=== PATIENT | male | born 1980 | race Caucasian/White ===

== ENCOUNTER 2020-04-08 12:43 | Emergency (ER) | payer OTHER ==
[2020-04-08 14:12] LABS: BLOOD UREA NITROGEN,BUN 12 mg/dL (7.0-18.0); CARBON DIOXIDE,CO2 27.6 mmol/L (21.0-32.0); CHLORIDE,CL 104 mmol/L (98-107); GLUCOSE RANDOM 114 mg/dL (74-106); POTASSIUM,K 4.7 mmol/L (3.5-5.1); SODIUM,NA 142 mmol/L (136-148)
--- NOTE | 2020-04-08 15:14 | CT ---
Indication Pain and swelling. Concern for right mastoiditis. TECHNIQUE: Noncontrast CT images were acquired through the temporal bones. COMPARISON: None. FINDINGS: Right side: Inflammatory stranding soft tissue swelling in the right postauricular region. The external auditory canal is widely patent. The tympanic membrane is faintly visualized. The middle ear cavity is clear. The ossicles and scutum are intact. No evidence for otosclerosis. The inner ear structures, including the cochlea, vestibule, and semicircular canals demonstrate normal morphology. Thinning of the superior semicircular canal roof without overt dehiscence. The mastoid air cells are clear. Left Side: The external auditory canal is widely patent. The tympanic membrane is faintly visualized. The middle ear cavity is clear. The ossicles and scutum are intact. No evidence for otosclerosis. The inner ear structures, including the cochlea, vestibule, and semicircular canals demonstrate normal morphology. No semicircular canal dehiscence. The mastoid air cells are clear. Other: Mild mucosal thickening in the left maxillary sinus. Lobulated 11 mm lesion in the left nasopharynx is nonspecific, though may represent a retention cyst. IMPRESSION: 1. The mastoid air cells and middle ear cavities are clear. 2. Inflammatory stranding and soft tissue swelling in the right postauricular region, concerning for cellulitis. Evaluation for abscess is limited on this noncontrast exam. 3. Thinning of the right superior semicircular canal roof without overt dehiscence. Please note that all CT scans at this facility use dose modulation, iterative reconstruction, and/or weight-based dosing when appropriate to reduce radiation dose to as low as reasonably achievable. Dictated by Chon Lord MD @ Apr 08 2020 3:03PM Signed by Dr. Chon Lord @ Apr 08 2020 3:13PM
--- NOTE | 2020-04-08 15:23 | EDM.PDOC ---
ED HPI GENERAL MEDICAL PROBLEM - General Chief Complaint: ENT Problem Stated Complaint: POSSIBLE EAR INFECTION Time Seen by Provider: 04/08/20 12:45 Source of Information: Reports: Patient History Limitations: Reports: No Limitations - History of Present Illness INITIAL COMMENTS - FREE TEXT/NARRATIVE: HISTORY AND PHYSICAL: History of present illness: Patient is a 39-year-old male who presents to the emergency room with concerns of soft tissue swelling and tenderness behind his right ear. He is concerned that he has an ear infection. He denies any injury, trauma or falls. Denies any recent travel, skin rashes or vector bites. No hearing loss, tinnitus, or drainage from the ear. Patient denies any fever, chills, headache, change in vision, syncope or near syncope. Denies any chest pain, back pain, shortness of breath or cough. Denies any GI or symptoms. Review of systems: As per history of present illness and below otherwise all systems reviewed and negative. Past medical history: As per history of present illness and as reviewed below otherwise noncontributory. Surgical history: As per history of present illness and as reviewed below otherwise noncon tributory. Social history: See social history for further information Family history: As per history of present illness and as reviewed below otherwise noncontributory. Physical exam: General: Well developed and well nourished. Alert and orientated x 3. Nontoxic in appearance and in no acute distress. Vital signs are stable and have been reviewed by me. Nursing notes were reviewed. HEENT: Atraumatic, normocephalic, pupils equal and reactive bilaterally, negative for conjunctival pallor or scleral icterus, mucous membranes moist, TMs normal bilaterally, throat clear, neck supple, nontender, trachea midline. Mild soft tissue swelling and redness behind the right ear along the mastoid bone, describes light tenderness with firm palpation. Nonfluctuant and non indurated. No drooling or trismus noted. No meningeal signs. No hot potato voice noted. Lungs: Clear to auscultation, breath sounds equal bilaterally. Normal work of breathing, no accessory muscles used. Heart: S1S2, regular rate and rhythm without overt murmur Abdomen: Soft, nondistended, nontender. Negative for masses or hepatosplenomegaly. Negative for costovertebral tenderness. Skin: Localized mild soft tissue swelling and redness behind the right ear along the mastoid bone (approx size of a quarter), describes light tenderness with firm palpation. Nonfluctuant and non indurated. Otherwise skin is intact, warm, dry. No lesions or rashes noted. Hematologic: No petechiae or purpra. Mucosa appropriate color and normal nail bed color and refill. Extremities: Atraumatic, moves all extremities per self without difficulty or deficits, negative for cords or calf pain. Neurovascular unremarkable. Neuro: Awake, alert, oriented. Cranial nerves II through XII unremarkable. Cerebellum unremarkable. Motor and sensory unremarkable throughout. Exam nonfocal. Psychiatric: Mood and affect are appropriate. Normal thought process. Answering questions appropriately. Notes: Lab work is unremarkable. CT shows that the mastoid air cells and middle ear cavities are clear. Inflammatory stranding and soft tissue swelling in the right postauricular region, concerning for cellulitis. Thinning of the right superior semicircular canal roof without overt dehiscence. I have talked with the patient about today's findings, in addition to providing specific details for plan of care. Reassessment at the time of disposition demonstrates that the patient is in no acute distress. Will treat with Keflex. The patient is stable for discharge, counseling was provided and we discussed in great detail signs and symptoms that would prompt them to return to the Emergency Department. Medication, follow up and supportive care measures were reviewed and discussed. Voices understanding and is agreeable to plan of care. Denies any further questions or concerns at this time. Diagnostics: CBC, CMP, Mastoid CT Therapeutics: None Prescription: Keflex Impression: Cellulitis Plan: 1. Today your lab work is within normal limits. CT scan does show a cellulitis of the soft tissue. Please continue to monitor the site closely. Take the antibiotic as directed.. 2. If needed you can alternate Tylenol and ibuprofen. 3. We encourage you to follow up with your primary care provider and/or recommended specialist in the next few days for re-evaluation and further care/management. If your symptoms should worsen, new symptoms develop or any of the signs and symptoms we discussed should arise please return to the emergency room or call 911 (if needed). Definitive disposition and diagnosis as appropriate pending reevaluation and review of above. - Related Data Allergies Allergy/AdvReac Type Severity Reaction Status Date / Time morphine Allergy Hives Verified 04/08/20 12:56 Home Meds: Home Meds cephALEXin [Keflex] 500 mg PO Q8H 5 Days #15 cap 04/08/20 [Rx] Past Medical History - Past Health History Medical/Surgical History: Denies Medical/Surgical History - Infectious Disease History Infectious Disease History: Reports: None Social & Family History - Family History Family Medical History: No Pertinent Family History - Tobacco Use Tobacco Use Status *Q: Never Tobacco User - Recreational Drug Use Recreational Drug Use: No ED ROS ENT - Review of Systems Review Of Systems: Comprehensive ROS is negative, except as noted in HPI. ED EXAM, ENT - Physical Exam Exam: See Below (See dictation) Course - Vital Signs Last Recorded V/S: Last Vital Signs Temp 97.3 F 04/08/20 12:57 Pulse 96 04/08/20 12:57 Resp 17 04/08/20 12:57 BP 126/78 04/08/20 12:57 Pulse Ox 99 04/08/20 12:57 - Orders/Labs/Meds Labs: Laboratory Tests 04/08/20 04/08/20 Range/Units 13:30 13:30 WBC 5.93 (4.0-11.0) K/uL RBC 4.93 (4.50-5.90) M/uL Hgb 15.6 (13.0-17.0) g/dL Hct 46.1 (38.0-50.0) % MCV 93.5 (80.0-98.0) fL MCH 31.6 (27.0-32.0) pg MCHC 33.8 (31.0-37.0) g/dL RDW Std Deviation 43.7 (28.0-62.0) fl RDW Coeff of Marie 13 (11.0-15.0) % Plt Count 178 (150-400) K/uL MPV 9.40 (7.40-12.00) fL Neut % (Auto) 51.8 (48.0-80.0) % Lymph % (Auto) 38.8 (16.0-40.0) % Greene % (Auto) 5.2 (0.0-15.0) % Eos % (Auto) 3.4 (0.0-7.0) % Baso % (Auto) 0.8 (0.0-1.5) % Neut # (Auto) 3.1 (1.4-5.7) K/uL Lymph # (Auto) 2.3 (0.6-2.4) K/uL Greene # (Auto) 0.3 (0.0-0.8) K/uL Eos # (Auto) 0.2 (0.0-0.7) K/uL Baso # (Auto) 0.1 (0.0-0.1) K/uL Nucleated RBC % 0.0 /100WBC Nucleated RBCs # 0 K/uL Sodium 142 (136-148) mmol/L Potassium 4.7 (3.5-5.1) mmol/L Chloride 104 (98-107) mmol/L Carbon Dioxide 27.6 (21.0-32.0) mmol/L BUN 12 (7.0-18.0) mg/dL Creatinine 1.1 (0.8-1.3) mg/dL Est Cr Clr Drug Dosing 90.16 mL/min Estimated GFR (MDRD) > 60.0 ml/min Glucose 114 H (74-106) mg/dL Calcium 9.3 (8.5-10.1) mg/dL Total Bilirubin 0.3 (0.2-1.0) mg/dL AST 11 L (15-37) IU/L ALT 25 (14-63) IU/L Alkaline Phosphatase 52 (46-116) U/L Total Protein 7.7 (6.4-8.2) g/dL Albumin 4.3 (3.4-5.0) g/dL Globulin 3.4 (2.6-4.0) g/dL Albumin/Globulin Ratio 1.3 (0.9-1.6) Departure - Departure Time of Disposition: 15:22 Disposition: Home, Self-Care 01 Clinical Impression: Cellulitis Qualifiers: Site of cellulitis: face Qualified Code(s): L03.211 - Cellulitis of face - Discharge Information Prescriptions: cephALEXin [Keflex] 500 mg PO Q8H 5 Days #15 cap Instructions: Cellulitis, Adult, [id number] Referrals: PCP,Not In Area [Primary Care Provider] - Forms: ED Department Discharge Additional Instructions: The following information is given to patients seen in the emergency department who are being discharged to home. This information is to outline your options for follow-up care. We provide all patients seen in our emergency department with a follow-up referral. The need for follow-up, as well as the timing and circumstances, are variable depending upon the specifics of your emergency department visit. If you don't have a primary care physician on staff, we will provide you with a referral. We always advise you to contact your personal physician following an emergency department visit to inform them of the circumstance of the visit and for follow-up with them and/or the need for any referrals to a consulting specialist. The emergency department will also refer you to a specialist when appropriate. This referral assures that you have the opportunity for follow-up care with a specialist. All of these measure are taken in an effort to provide you with optimal care, which includes your follow-up. Under all circumstances we always encourage you to contact your private physician who remains a resource for coordinating your care. When calling for follow-up care, please make the office aware that this follow-up is from your recent emergency room visit. If for any reason you are refused follow-up, please contact the [facility] Emergency Department at and asked to speak to the emergency department charge nurse. [facility] [address] [place] [address] [place] [address] Thank you for choosing the [facility] emergency department in [place] for your medical needs today. It was a pleasure caring for you. Today you were seen in the emergency department for swelling behind your right ear. 1. Today your lab work is within normal limits. CT scan does show a cellulitis of the soft tissue. Please continue to monitor the site closely. Take the antibiotic as directed.. 2. If needed you can alternate Tylenol and ibuprofen. 3. We encourage you to follow up with your primary care provider and/or recommended specialist in the next few days for re-evaluation and further care/management. If your symptoms should worsen, new symptoms develop or any of the signs and symptoms we discussed should arise please return to the emergency room or call 911 (if needed). Sepsis Event Note (ED) - Evaluation Sepsis Screening Result: No Definite Risk - Focused Exam Vital Signs: Vital Signs Temp Pulse Resp BP Pulse Ox 04/08/20 12:57 97.3 F 96 17 126/78 99
== END 2020-04-08 15:31 | disposition home or self-care (01) ==
LOC: MW.ED 12:43
DX: L03.211 Cellulitis of face (principal); Z88.5 Allergy status to narcotic agent
CPT/HCPCS: 36415; 70480; 70480-26; 80053; 85025; 99282; 99284-25